=== PATIENT | female | born 2000 | race Caucasian/White ===

== ENCOUNTER 2019-09-13 07:21 | Emergency (ER) | payer OTHER ==
--- NOTE | 2019-09-13 07:58 | UC ---
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 She has tried use of pedialyte , water and jax jesus, but continues to feel lightheaded and unwell. No fever or abdominal pain. She has had 2 episodes of syncope, both while seated. States that she has not voided in more than 24 hours. - History of Current Complaint Chief Complaint: UCGI Stated Complaint: FLU LIKE SYMPTOMS, DEHIDRATED Time Seen by Provider: 09/13/19 07:48 Hx Obtained From: Patient Hx Last Menstrual Period: IUD Onset/Duration: Sudden Onset Timing: Intermittent Episodes Lasting: - minutes Onset Severity: Moderate Current Severity: Mild Pain Intensity: 3 Associated Signs & Symptoms: Positive: Dizziness, Decreased Oral Intake, Diaphoresis, Nausea - Allergy/Home Medications Allergies/Adverse Reactions: Allergies Allergy/AdvReac Type Severity Reaction Status Date / Time Cephalosporins Allergy Unknown Verified 09/13/19 07:36 Reaction Details Penicillins Allergy Hives Verified 09/13/19 07:36 shrimp Allergy Swelling Verified 09/13/19 07:36 Sulfa (Sulfonamide Allergy Rash Verified 09/13/19 07:36 Antibiotics) Home Medications: Home Medications Desvenlafaxine Succinate [Pristiq] 50 mg PO DAILY 09/13/19 [History Confirmed ] buPROPion TAB* [Wellbutrin TAB*] 100 mg PO DAILY 09/13/19 [History Confirmed 05/25] PMH/Surg Hx/FS Hx/Imm Hx Previously Healthy: Yes Respiratory History: Asthma Psychological History: Depression - Surgical History Surgical History: None - Social History Occupation: Employed Part-time, Student Alcohol Use: Occasionally Substance Use Type: None Smoking Status (MU): Never Smoked Tobacco - Immunization History Most Recent Influenza Vaccination: unknown Most Recent Pneumonia Vaccination: N/A Review of Systems All Other Systems Reviewed And Are Negative: Yes Constitutional: Positive: Fatigue Skin: Positive: Negative Eyes: Positive: Negative ENT: Positive: Negative Respiratory: Positive: Negative Cardiovascular: Positive: Other - 2 episodes of syncopy. Gastrointestinal: Positive: Vomiting, Diarrhea, Nausea Genitourinary: Positive: Other - decreased voids Motor: Positive: Negative Neurovascular: Positive: Negative Musculoskeletal: Positive: Negative Neurological: Positive: Headache Psychological: Positive: Other - missed both wellbutrin and Pristiq in the past several days. Is Patient Immunocompromised?: No Physical Exam Triage Information Reviewed: Yes Appearance: No Pain Distress, Other: - looks pale and unwell. Vital Signs: Initial Vital Signs Temp 96.5 F 09/13/19 07:30 Pulse 100 09/13/19 07:30 Resp 16 09/13/19 07:30 BP 118/78 09/13/19 07:30 Pulse Ox 98 09/13/19 07:30 Eyes: Positive: Conjunctiva Clear ENT: Positive: Pharynx normal, TMs normal Neck: Positive: Supple, Nontender, No Lymphadenopathy Respiratory: Positive: Lungs clear, Normal breath sounds, No respiratory distress Cardiovascular: Positive: No Murmur, Tachycardia Abdomen Description: Positive: Nontender, No Organomegaly, Soft Musculoskeletal Exam: Normal Neurological: Positive: Alert, Muscle Tone Normal Psychological Exam: Normal Skin Exam: Normal Re-Evaluation - Re-Evaluation First Eval Re-Evaluation Time: 09:25 Change: Improved Course/Dx - Course Course Of Treatment: ondansetron and IV fluids for treatment of dehydration and nausea; Will continue rehydration at home. - Diagnoses Provider Diagnosis: Gastroenteritis, Dehydration Discharge ED - Sign-Out/Discharge Documenting (check all that apply): Patient Departure All imaging exams completed and their final reports reviewed: No Studies - Discharge Plan Condition: Stable Disposition: HOME Prescriptions: Ondansetron [Ondansetron Odt] 4 mg PO Q6H #5 tab.rapdis Patient Education Materials: Gastroenteritis (ED), Dehydration (ED), Nutrition Tips for Relief of Diarrhea (ED) Forms: *Work Release Referrals: Cynthia Hill MD [Primary Care Provider] - Additional Instructions: Continue taking sips of clear fluids, and advance diet as tolerated. You can take the next dose of ondansetron between noon and 2. - Billing Disposition and Condition Condition: STABLE Disposition: Home
[2019-09-13] MEDS ORDERED: NS 0.9% 1000 ML** 1,000 ML IV ONE (07:59)
[2019-09-13] MEDS ORDERED: Ondansetron INJ* 2 MG/ML VIAL IV ONE (08:00)
[2019-09-13 09:48] VITALS: BP 113/63
== END 2019-09-13 09:57 | disposition home or self-care (01) ==
LOC: UCEAST 07:21
DX: K52.9 Noninfective gastroenteritis and colitis, unspecified (principal); E86.0 Dehydration; F32.9 Major depressive disorder, single episode, unspecified; J45.909 Unspecified asthma, uncomplicated; Z88.1 Allergy status to other antibiotic agents; Z88.0 Allergy status to penicillin; Z91.013 Allergy to seafood; Z79.899 Other long term (current) drug therapy; Z88.2 Allergy status to sulfonamides
CPT/HCPCS: 96360; 96374; 99213; G0463; J2405

== ENCOUNTER 2019-10-22 21:13 | Emergency (ER) | payer OTHER ==
[2019-10-22] MEDS ORDERED: Albuterol/Ipratropium NEB.SOL* Albuterol 2.5 MG/Ipratropium 0.5 MG 3 ML INH ONE (21:15)
[2019-10-22] MEDS ORDERED: Azithromycin TAB* 250 MG PO ONE (21:26)
[2019-10-22 21:28] VITALS: BP 123/90
[2019-10-22] MEDS ORDERED: Albuterol HFA INHALER* 8 gm MDI INH ONE (21:29)
--- NOTE | 2019-10-22 21:30 | UC ---
Respiratory Complaint HPI - HPI Summary HPI Summary: 19-year-old woman comes in with chief complaint of cough chest congestion and asthma exacerbation. Started about 5 days ago with upper respiratory tract infection symptoms. This is made her asthma worse and she's coughing quite a bit and wheezing quite a bit. She does have an old inhaled steroid and albuterol inhalers at home however there and are not helping much. She is bringing up some sputum. - History of Current Complaint Stated Complaint: COUGH,CONGESTION Time Seen by Provider: 10/22/19 21:21 Hx Last Menstrual Period: IUD - Allergies/Home Medications Allergies/Adverse Reactions: Allergies Allergy/AdvReac Type Severity Reaction Status Date / Time Cephalosporins Allergy Unknown Verified 10/22/19 21:30 Reaction Details Penicillins Allergy Hives Verified 10/22/19 21:30 shrimp Allergy Swelling Verified 10/22/19 21:30 Sulfa (Sulfonamide Allergy Rash Verified 10/22/19 21:30 Antibiotics) PMH/Surg Hx/FS Hx/Imm Hx Previously Healthy: Yes Respiratory History: Asthma - Surgical History Surgical History: None - Family History Known Family History: Positive: Non-Contributory - Social History Alcohol Use: Occasionally Substance Use Type: None Smoking Status (MU): Never Smoked Tobacco - Immunization History Most Recent Influenza Vaccination: unknown Most Recent Pneumonia Vaccination: N/A Review of Systems All Other Systems Reviewed And Are Negative: Yes Constitutional: Positive: Other - SEE HPI Skin: Positive: Negative Eyes: Positive: Negative ENT: Positive: Nasal Discharge Respiratory: Positive: Shortness Of Breath, Cough, Other - SEE HPI Cardiovascular: Positive: Negative Gastrointestinal: Positive: Negative Motor: Positive: Negative Neurovascular: Positive: Negative Musculoskeletal: Positive: Negative Neurological: Positive: Negative Psychological: Positive: Negative Is Patient Immunocompromised?: No Physical Exam Triage Information Reviewed: Yes Appearance: No Pain Distress, Well-Nourished, Other: - Patient has a wheezing loose cough. No respiratory distress breasts in between coughing. Vital Signs Reviewed: Yes Eye Exam: Normal Eyes: Positive: Conjunctiva Clear ENT: Positive: Pharyngeal erythema, Nasal congestion, Nasal drainage, TMs normal Neck: Positive: Supple Respiratory: Positive: Rhonchi, Wheezing Cardiovascular: Positive: Tachycardia Musculoskeletal: Positive: Strength Intact, ROM Intact Neurological: Positive: Alert Psychological: Positive: Age Appropriate Behavior Skin Exam: Normal Respiratory Course/Dx - Course Course Of Treatment: Improved with nebulizer in clinic. Patient also given prednisone 60 mg by mouth. We discussed viral versus bacterial infections and the role of antibiotics and the patient prefers to be on an antibiotic at this time. Started Benjamin azithromycin. Patient's follow-up primary care doctor's to get reevaluated sooner if worse go the emergency department if worse. - Differential Dx/Diagnosis Provider Diagnosis: Acute bronchitis with asthma Discharge ED - Sign-Out/Discharge Documenting (check all that apply): Patient Departure All imaging exams completed and their final reports reviewed: No Studies - Discharge Plan Condition: Stable Disposition: HOME Prescriptions: Albuterol HFA INHALER* [Ventolin HFA Inhaler*] 2 puff INH Q4H PRN #1 mdi PRN Reason: Wheezing Azithromycin 250 mg PO DAILY #4 tablet Beclomethasone 80 MCG MDI(NF) [Qvar 80 MCG MDI(NF)] 2 puff INH BID #1 mdi predniSONE 20 mg TAB [Deltasone 20 MG TAB*] 40 mg PO DAILY #8 tab Patient Education Materials: Asthma (ED), Acute Bronchitis (ED) Referrals: Cynthia Hill MD [Primary Care Provider] - Additional Instructions: FOLLOW UP WITH YOUR DOCTOR IF NOT COMPLETELY IMPROVED. GO TO THE EMERGENCY DEPARTMENT IF NOT IMPROVED OR WORSE OR ANY QUESTIONS OR CONCERNS. - Billing Disposition and Condition Condition: STABLE Disposition: Home
[2019-10-22] MEDS ORDERED: Benzonatate CAP* 100 MG PO ONE ×2 (22:01→22:05)
== END 2019-10-22 22:21 | disposition home or self-care (01) ==
LOC: UCEAST 21:13
DX: J20.9 Acute bronchitis, unspecified (principal); J45.909 Unspecified asthma, uncomplicated; Z88.1 Allergy status to other antibiotic agents; Z88.0 Allergy status to penicillin; Z91.013 Allergy to seafood; Z88.2 Allergy status to sulfonamides
CPT/HCPCS: 99213; A9270-GY; G0463; J7512